=== PATIENT | female | born 1990 | race Caucasian/White ===

== ENCOUNTER 2019-08-05 16:26 | Emergency (ER) | payer OTHER, BC, MEDICAID, SELFPAY ==
[2019-08-05 16:34] VITALS: BP 129/77; PULSE 88; RESP 16; TEMP 36.4; O2SAT 100; BMI 24.2
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
[2019-08-05 18:12] VITALS: BP 118/62; PULSE 72; RESP 16; O2SAT 96
== END 2019-08-05 18:14 | disposition home or self-care (01) ==
PROVIDERS: Emergency Provider Nurse Practitioner Family; Family Provider Family Medicine
DX: Z04.1 Encounter for examination and observation following transport accident (principal); F17.210 Nicotine dependence, cigarettes, uncomplicated; V49.9XXA Car occupant (driver) (passenger) injured in unspecified traffic accident, initial encounter
CPT/HCPCS: 72072; 72100; 73562; 99281; 99282

== ENCOUNTER 2021-10-24 07:25 | Emergency (ER) | payer MEDICAID, SELFPAY ==
[2021-10-24 07:31] VITALS: BP 107/64; PULSE 99; RESP 16; TEMP 37.2; O2SAT 99; BMI 25.8
--- NOTE | 2021-10-24 07:50 | CTR_ITS ---
PROCEDURE INFORMATION: Exam: CT Abdomen And Pelvis With Contrast Exam date and time: 10/24/2021 9:56 AM Age: 31 years old Clinical indication: Abdominal pain. C-sections x 4. Severe lower abdominal pain since yesterday with vomiting this morning. TECHNIQUE: Imaging protocol: Computed tomography of the abdomen and pelvis with contrast. Radiation optimization: All CT scans at this facility use at least one of these dose optimization techniques: automated exposure control; mA and/or kV adjustment per patient size (includes targeted exams where dose is matched to clinical indication); or iterative reconstruction. Contrast material: OMNI 300; Contrast volume: 95 ml; Contrast route: INTRAVENOUS (IV); COMPARISON: [place] [facility] [place] > 14 weeks 12/09/2018 10:17 AM RADIATION DOSE METRICS: Total DLP (mGy-cm): 1144.83 FINDINGS: Lungs: There is subsegmental atelectasis or scarring in the right middle lobe. No pericardial effusion. No hiatal hernia. Liver: The liver is enlarged measuring 21.1 cm. There is mild biliary ductal dilatation in the right hepatic lobe of unknown clinical significance. Gallbladder and bile ducts: The gallbladder is unremarkable. Pancreas: The pancreas is unremarkable. Spleen: The spleen is enlarged measuring 13.2 cm. Adrenal glands: The adrenal glands are unremarkable. Kidneys and ureters: Subcentimeter renal hypodensities are too small to accurately characterize and require no follow-up. Stomach and bowel: The stomach and small bowel are unremarkable. The colon is unremarkable. Appendix: The appendix is not discretely identified. There is a tubular structure in the right adnexa that could reflect hydrosalpinx/pyosalpinx. It is difficult to exclude acute appendicitis. There is free fluid in the right adnexa and pelvis. Some of the fluid is dense suggesting the presence of blood. Intraperitoneal space: No free intraperitoneal air is seen. Arteries: No abdominal aortic aneurysm. Lymph nodes: No retroperitoneal lymphadenopathy. Urinary bladder: The bladder wall is thickened. Correlate with urinalysis to exclude cystitis. Reproductive: The uterus appears retroflexed. Bones/joints: No acute fracture is identified. Soft tissues: No subcutaneous soft tissue swelling is appreciated. CT/CT abdomen pelvis w con* [id number] IMPRESSION: 1. The appendix is not discretely identified. There is a tubular structure in the right adnexa that could reflect hydrosalpinx/pyosalpinx. It is difficult to exclude acute appendicitis. There is free fluid in the right adnexa and pelvis. Some of the fluid is dense suggesting the presence of blood. Consider CT of the abdomen and pelvis with oral contrast with delay to allow oral contrast to reach the right lower quadrant to further assess if clinically warranted. Consider ultrasound to further assess if more clinically concerned for a gynecologic etiology. 2. The bladder wall is thickened. Correlate with urinalysis to exclude cystitis. 3. Hepatosplenomegaly with mild dilatation of the biliary ducts in the right hepatic lobe of unknown clinical significance. Consider nonemergent MR abdomen hepatic protocol with and without contrast to better characterize.
--- NOTE | 2021-10-24 07:51 | W.ED.ABDPA2 ---
Documented by User: [place] Calvin 10/24/21 15:02 HPI - Abdominal Pain General: Chief Complaint: Abdominal Pain Stated Complaint: severe abdominal pain Time Seen by Provider: 10/24/21 07:35 History of Present Illness: Patient complains about abdominal discomfort that began yesterday. She said it was mild and went across the low abdomen become worse during the night to now where she cannot lay on her left side much at all but she says when she lays on her left side hurts more on her right side. Denies any vomiting has been nauseated though. Has had some chills but no fever. No recent illness that she is aware of. No vaginal discharge or history ovarian cyst. Patient has a history of 4 C-sections. Associated Symptoms: Reports nausea; Denies chills, fever(s) and vomiting Review of Systems Const: Denies: fever(s), chills or body aches Eyes: Denies: eye discomfort ENMT: Denies: throat pain Card: Denies: chest pain Resp: Denies: dyspnea GI: Reports: abdominal pain and nausea; Denies: vomiting Skin/Breast: Denies: rash Neuro: Denies: headache(s) Psych: Denies: depression or suicidal ideation PFSH ED PFSH: Social History Smoking and tobacco status: current every day smoker Physical Exam Const: COMMON NORMALS: no acute distress, patient oriented x3 and alert HENMT: COMMON NORMALS: normocephalic and external ears normal HEAD & SCALP: normocephalic EXTERNAL EAR: Yes external ears normal Eye: COMMON NORMALS: EOMs intact bilaterally Neck/C-Spine: COMMON NORMALS: no JVD Resp: COMMON NORMALS: normal respiratory effort and No use of accessory muscles Cardio: COMMON NORMALS: no JVD GI: AUSCULTATION: Yes Hypoactive bowel sounds present PALPATION: Yes Tenderness to palpation present (GI) (Generalized) PERCUSSION: normal to percussion Extremity: COMMON NORMALS: normal to inspection and full ROM Neuro: COMMON NORMALS: patient oriented x3 SENSORIUM/ORIENTATION: Yes alert Psych: COMMON NORMALS: mental status grossly normal Skin: COMMON NORMALS: no rashes or lesions noted GENERAL SKIN EXAM: no rashes or lesions noted Course Vital Signs: Vital signs: Vital Signs Temperature 99.0 F 10/24/21 07:31 Pulse Rate 99 10/24/21 07:31 Respiratory Rate 18 10/24/21 12:52 Blood Pressure 107/64 10/24/21 07:31 Pulse Oximetry 99 10/24/21 07:31 MDM - Abdominal Pain Medical Decision Making Patient presents with abdominal discomfort that started at 2100 last night. Radiology laboratories studies were done CTs with contrast and oral contrast performed and spoke with the V rad radiologist on both of those. Finally recommended ultrasound transvaginal be done and revealed probably hemorrhagic cyst of the ovary. Patient's pain controlled with pain medications.. I spoke with Dr. Montemayor and Dr. Ramirez concerning this patient documented and as states that we will follow-up 0 800 Sunday morning for appointment to control pain with medication. Lab Data : 10/24/21 07:54 10/24/21 07:54 Labs/Radiology: Radiology Impressions Abdomen/Pelvis CT 10/24/21 10:36 IMPRESSION: 1. There is complex fluid in the pelvis. The suspected right adnexal pyosalpinx/hydrosalpinx is not well visualized by noncontrast CT. There is complex fluid in the pelvis. Recommend ultrasound to further assess. 2. The distal appendix is now visualized despite the fact that contrast has not reached the right lower quadrant. The distal appendix is essentially normal in caliber. The proximal and mid appendix is obscured by complex fluid in the pelvis. This is felt unlikely to represent acute appendicitis. 3. Hepatosplenomegaly. Mild biliary ductal dilatation in the right hepatic lobe is not well seen by noncontrast CT. ADDENDUM: 10/24/21 1243 Findings discussed with SHERRI SORENSON at 10/24/2021 12:40 PM CDT. Pelvic/Transvag US 10/24/21 12:41 IMPRESSION: 1. Complex free fluid in the pelvis is only minimal. May be due to ruptured hemorrhagic cyst. 2. Both ovaries contain multiple small peripheral follicles without enlargement. If this patient is having significant pain ovarian torsion should be considered although there are no imaging findings at this time the cystic for torsion. 3. Prominent varicosities in the pelvis. May be related to pelvic venous congestion syndrome. Laboratory Results WBC 11.3 10^3/uL (4.0-10.0) H 10/24/21 07:54 RBC 4.43 10^6/uL (4.1-5.3) 10/24/21 07:54 Hgb 12.8 g/dL (11.5-15.3) 10/24/21 07:54 Hct 39.2 % (37.0-47.0) 10/24/21 07:54 MCV 88.5 fl (81-99) 10/24/21 07:54 MCH 28.9 pg (28.0-34.0) 10/24/21 07:54 MCHC 32.7 g/dL (30.0-36.0) 10/24/21 07:54 RDW 13.4 % (12.1-15.1) 10/24/21 07:54 Plt Count 227 10^3/cmm (130-400) 10/24/21 07:54 MPV 9.8 fL (7.4-10.4) 10/24/21 07:54 Neut % (Auto) 91.3 % 10/24/21 07:54 Lymph % (Auto) 3.8 % 10/24/21 07:54 [place] % (Auto) 4.1 % 10/24/21 07:54 Eos % (Auto) 0.2 % 10/24/21 07:54 Baso % (Auto) 0.3 % 10/24/21 07:54 Neut # (Auto) 10.36 10^3/uL (1.8-7.7) H 10/24/21 07:54 Lymph # (Auto) 0.4 10^3/uL (0.8-4.8) L 10/24/21 07:54 [place] # (Auto) 0.5 10^3/uL (0.2-0.9) 10/24/21 07:54 Eos # (Auto) 0.0 10^3/uL (0.0-0.8) 10/24/21 07:54 Baso # (Auto) 0.0 10^3/uL (0.0-0.1) 10/24/21 07:54 Nucleated RBC % (auto) 0 % 10/24/21 07:54 Nucleated RBCs # 0.0 /100WBC 10/24/21 07:54 Sodium 139 mmol/L (136-145) 10/24/21 07:54 Potassium 3.8 mmol/L (3.5-5.1) 10/24/21 07:54 Chloride 105 mmol/L (98-107) 10/24/21 07:54 Carbon Dioxide 22 mmol/L (22-29) 10/24/21 07:54 Anion Gap 15.8 (5-19) 10/24/21 07:54 BUN 11 mg/dL (6-20) 10/24/21 07:54 Creatinine 0.8 mg/dL (0.5-0.9) 10/24/21 07:54 GFR Calculation 84.2 mL/min (90-130) L 10/24/21 07:54 Glucose 122 mg/dL (65-115) H 10/24/21 07:54 Calculated Osmolality 289 mOsm/kg (285-295) 10/24/21 07:54 Calcium 8.3 mg/dL (8.5-10.5) L 10/24/21 07:54 Total Bilirubin 0.7 mg/dL (0.15-1.2) 10/24/21 07:54 AST 9 U/L (0-32) 10/24/21 07:54 ALT 7 U/L (0-33) 10/24/21 07:54 Alkaline Phosphatase 45 IU/L (35-105) 10/24/21 07:54 Total Protein 6.6 g/dL (6.6-8.7) 10/24/21 07:54 Albumin 4.0 g/dL (3.5-5.2) 10/24/21 07:54 Globulin 2.6 g/dL (1.3-4.6) 10/24/21 07:54 Lipase 19 U/L (13-60) 10/24/21 07:54 HCG, Qual Negative (Negative) 10/24/21 07:54 Urine Color Dark yellow (Yellow) 10/24/21 08:31 Urine Appearance Hazy (CLEAR) A 10/24/21 08:31 Urine pH 5 (5-7) 10/24/21 08:31 Ur Specific [place] 1.025 (1.005-1.030) 10/24/21 08:31 Urine Protein Neg (Negative) 10/24/21 08:31 Urine Glucose (UA) Norm (Normal) 10/24/21 08:31 Urine Ketones Negative (Negative) 10/24/21 08:31 Urine Blood Neg (Negative) 10/24/21 08:31 Urine Nitrate Negative (Negative) 10/24/21 08:31 Urine Bilirubin 1+ (Negative) H 10/24/21 08:31 Urine Urobilinogen 1 mg/dL (Negative) H 10/24/21 08:31 Ur Leukocyte Esterase Negative (Negative) 10/24/21 08:31 Urine RBC 0-4 /hpf (0-2) H 10/24/21 08:31 Urine WBC 0-4 /hpf (0-5) H 10/24/21 08:31 Ur Squamous Epith Cells 0-4 /hpf (0-5) H 10/24/21 08:31 Amorphous Sediment 1+ /hpf 10/24/21 08:31 Urine Bacteria 2+ /hpf (NONE) H 10/24/21 08:31 Discharge Plan Discharge Patient Disposition: Home Clinical Impression: Hemorrhagic cyst of ovary Condition: Stable Prescriptions: New hydrocodone-acetaminophen 5-325 mg tablet 1 tab PO TID PRN (Reason: pain) Qty: 14 0RF cephalexin 500 mg capsule 500 mg PO Q8H 7 Days Qty: 21 0RF No Action multivitamin Tablet 1 tab PO DAILY 0RF Discharge Orders: Discharge ED (Routine); Ordered 10/24/21 Ordered By: Boom Sorenson Referrals: Guy Castillo MD [Primary Care Provider] - Ziggy Mei MD [Staff Physician] - Discharge Diet: Usual diet Discharge Activity: Increase activity as tolerated Patient Instructions: Ruptured Ovarian Cyst (ED) Activity Restrictions/Additional Instructions: Medication as prescribed. Return to the ER for worsening symptoms. You have an appoint with Dr. Ramirez the SAUSAGE INSPECTOR doc at [phone] here at [facility]. Stand Alone Forms: Work/School Release Coding Level of Care Code ED Advanced Practice Psychiatric Nurse for Chg Fwd Exam Comprehensive Documented by User: Hailee Montemayor MD 10/25/21 16:22 HPI - Abdominal Pain General: Chief Complaint: Abdominal Pain Stated Complaint: severe abdominal pain Time Seen by Provider: 10/24/21 07:35 PFSH ED PFSH: Social History Smoking and tobacco status: current every day smoker Course Vital Signs: Vital signs: Vital Signs Temperature 99.0 F 10/24/21 07:31 Pulse Rate 99 10/24/21 07:31 Respiratory Rate 18 10/24/21 12:52 Blood Pressure 107/64 10/24/21 07:31 Pulse Oximetry 99 10/24/21 07:31 MDM - Abdominal Pain Medical Decision Making Patient presents with abdominal discomfort that started at 2100 last night. Radiology laboratories studies were done CTs with contrast and oral contrast performed and spoke with the V rad radiologist on both of those. Finally recommended ultrasound transvaginal be done and revealed probably hemorrhagic cyst of the ovary. Patient's pain controlled with pain medications.. I spoke with Dr. Montemayor and Dr. Ramirez concerning this patient documented and as states that we will follow-up 0 800 Sunday morning for appointment to control pain with medication. Dr. Montemayor - Patient evaluation, diagnosis, and management was performed independently by Boom Sorenson. I did not personally see the patient but staffed the patient with patient's provider. I did review the patient's note today and I believe this note is consistent. Lab Data : 10/24/21 07:54 10/24/21 07:54 Labs/Radiology: Radiology Impressions Abdomen/Pelvis CT 10/24/21 10:36 IMPRESSION: 1. There is complex fluid in the pelvis. The suspected right adnexal pyosalpinx/hydrosalpinx is not well visualized by noncontrast CT. There is complex fluid in the pelvis. Recommend ultrasound to further assess. 2. The distal appendix is now visualized despite the fact that contrast has not reached the right lower quadrant. The distal appendix is essentially normal in caliber. The proximal and mid appendix is obscured by complex fluid in the pelvis. This is felt unlikely to represent acute appendicitis. 3. Hepatosplenomegaly. Mild biliary ductal dilatation in the right hepatic lobe is not well seen by noncontrast CT. ADDENDUM: 10/24/21 1243 Findings discussed with SHERRI SORENSON at 10/24/2021 12:40 PM CDT. Pelvic/Transvag US 10/24/21 12:41
[2021-10-24 08:03] VITALS: RESP 17
[2021-10-24] MEDS: morphine 4 mg/mL SDV 1 mL IVP ×2 (08:03→10:41)
[2021-10-24] MEDS: ondansetron 2 mg/ML SDV 2 mL 4 MG IVP (08:03)
[2021-10-24] MEDS: sodium chloride 0.9% 1,000 ML 999 ML IV (08:03)
[2021-10-24 08:05] LABS: Basophils % 0.3 %; Eosinophils % 0.2 %; Hematocrit 39.2 % (37.0-47.0); Hemoglobin 12.8 g/dL (11.5-15.3); Lymphocytes # 0.4 10^3/uL (0.8-4.8); Lymphocytes % 3.8 %; Mean Corpuscular HGB Conc 32.7 g/dL (30.0-36.0); Mean Corpuscular Hemoglobin 28.9 pg (28.0-34.0); Mean Corpuscular Volume 88.5 fl (81-99); Mean Platelet Volume 9.8 fL (7.4-10.4); Monocytes # 0.5 10^3/uL (0.2-0.9); Monocytes % 4.1 %; Neutrophils # 10.36 10^3/uL (1.8-7.7); Neutrophils % 91.3 %; Nucleated Red Blood Cells % 0 %; Platelet Count 227 10^3/cmm (130-400); Red Blood Count 4.43 10^6/uL (4.1-5.3); Red Cell Distribution Width 13.4 % (12.1-15.1); White Blood Count 11.3 10^3/uL (4.0-10.0)
[2021-10-24 08:29] LABS: Alanine Aminotransferase 7 U/L (0-33); Alkaline Phosphatase 45 IU/L (35-105); Anion Gap 15.8 (5-19); Aspartate Amino Transferase 9 U/L (0-32); Blood Urea Nitrogen 11 mg/dL (6-20); Calcium 8.3 mg/dL (8.5-10.5); Carbon Dioxide 22 mmol/L (22-29); Chloride 105 mmol/L (98-107); Globulin 2.6 g/dL (1.3-4.6); Glomerular Filtration Rate 84.2 mL/min (90-130); Glucose 122 mg/dL (65-115); Lipase 19 U/L (13-60); Osmolality Calculated 289 mOsm/kg (285-295); Potassium 3.8 mmol/L (3.5-5.1); Sodium 139 mmol/L (136-145); Total Bilirubin 0.7 mg/dL (0.15-1.2); Total Protein 6.6 g/dL (6.6-8.7)
[2021-10-24 08:30] LABS: HCG, Serum Qual Negative (Negative)
[2021-10-24 08:47] LABS: Add Urine Microscopic? YES; Bacteria Urine 2+ /hpf; Bilirubin Urine 1+ (Negative); Blood Urine Neg (Negative); Glucose Urine UA Norm (Normal); Ketones Urine Negative (Negative); Leukocyte Esterase Urine Negative (Negative); Nitrate Urine Negative (Negative); Protein Urine Neg (Negative); RBC Urine 0-4 /hpf (0-2); Specific Gravity, Urine 1.025 (1.005-1.030); Squamous Epithelial Cell Urine 0-4 /hpf (0-5); Urine Appearance Hazy (CLEAR); Urine Color Dark Yellow (Yellow); Urobilinogen Urine 1 mg/dL (Negative); WBC Urine 0-4 /hpf (0-5); pH Urine 5 (5-7)
[2021-10-24 08:48] LABS: Add Urine Culture? Yes; Amorphous Sediment Urine 1+ /hpf
[2021-10-24] MEDS: iohexol 300 mg/mL 100 mL Btl IV (10:03)
--- NOTE | 2021-10-24 10:36 | CTR_ITS ---
PROCEDURE INFORMATION: Exam: CT Abdomen And Pelvis Without Contrast Exam date and time: 10/24/2021 12:26 PM Age: 31 years old Clinical indication: Lower abdominal pain. 4 prior C-sections. Reimage fluid/swelling in the right lower quadrant. Okay so completely unhelpful TECHNIQUE: Imaging protocol: Computed tomography of the abdomen and pelvis without contrast. Radiation optimization: All CT scans at this facility use at least one of these dose optimization techniques: automated exposure control; mA and/or kV adjustment per patient size (includes targeted exams where dose is matched to clinical indication); or iterative reconstruction. Other contrast: Oral, omni 300, 25; COMPARISON: CT abdomen pelvis w con* [id number] 10/24/2021 9:56 AM RADIATION DOSE METRICS: Total DLP (mGy-cm): 1399.56 FINDINGS: Liver: The liver is enlarged measuring 21.2 cm. Mild biliary ductal dilatation in the right hepatic lobe is not well seen by noncontrast CT. Gallbladder and bile ducts: The gallbladder is unremarkable. Pancreas: The pancreas is unremarkable. Spleen: The spleen is enlarged measuring 13.3 cm. Adrenal glands: The adrenal glands are unremarkable. Kidneys and ureters: The kidneys are unremarkable. Stomach and bowel: The stomach and small bowel are unremarkable. The colon is unremarkable. Appendix: The distal appendix is now visualized despite the fact that contrast has not reached the right lower quadrant. The distal appendix is essentially normal in caliber. The proximal and mid appendix is obscured by complex fluid in the pelvis. Intraperitoneal space: No free intraperitoneal air is seen. Arteries: No abdominal aortic aneurysm. Lymph nodes: No retroperitoneal lymphadenopathy. Urinary bladder: No mass is identified. Reproductive: There is complex fluid in the pelvis. The suspected right adnexal pyosalpinx/hydrosalpinx is not well visualized by noncontrast CT. Recommend ultrasound to further assess. Bones/joints: No acute fracture is seen. Soft tissues: Tiny fat containing umbilical hernia. Minimal scarring in the right middle lobe. Tiny pulmonary nodule in the right lower lobe measuring 3.6 mm. The patient does not meet age criteria for pulmonary nodule follow-up by Fleischner society criteria. No pericardial effusion. No hiatal hernia. CT/CT abdomen pelvis wo con [id number] IMPRESSION: 1. There is complex fluid in the pelvis. The suspected right adnexal pyosalpinx/hydrosalpinx is not well visualized by noncontrast CT. There is complex fluid in the pelvis. Recommend ultrasound to further assess. 2. The distal appendix is now visualized despite the fact that contrast has not reached the right lower quadrant. The distal appendix is essentially normal in caliber. The proximal and mid appendix is obscured by complex fluid in the pelvis. This is felt unlikely to represent acute appendicitis. 3. Hepatosplenomegaly. Mild biliary ductal dilatation in the right hepatic lobe is not well seen by noncontrast CT.
[2021-10-24 10:41] VITALS: RESP 18
--- NOTE | 2021-10-24 12:41 | US_ITS ---
WS: [id number] TRANSABDOMINAL PELVIC AND TRANSVAGINAL PELVIC ULTRASOUND HISTORY: fluid in pelvis, radiologist requested COMPARISON: None available. Uterus: 7.3 cm x 4.8 cm x 4.0 cm. Normal size retroverted uterus. No mass identified. There is a smal l amount of complex free fluid in the pelvis near the fundus of the uterus and towards the cul-de-sac . Endometrium: 0.9 cm. Trilaminar appearance due to proliferative phase. Right ovary: 2.7 cm x 2.3 cm x 1.8 cm. Although the ovaries not enlarged there are multiple small fol licles within the ovary. Slightly higher resistance waveform than expected. Left ovary: 2.8 cm x 1.6 cm x 2.5 cm. Small peripheral follicles. Normal vascularity. Mildly complex free fluid in the pelvis. Numerous bilateral varicoceles. US/US pelvic with transvaginal IMPRESSION: 1. Complex free fluid in the pelvis is only minimal. May be due to ruptured he morrhagic cyst. 2. Both ovaries contain multiple small peripheral follicles without enlargemen t. If this patient is having significant pain ovarian torsion should be conside red although there are no imaging findings at this time the cystic for torsion. 3. Prominent varicosities in the pelvis. May be related to pelvic venous conge stion syndrome.
[2021-10-24 12:52] VITALS: RESP 18
[2021-10-24] MEDS: HYDROmorphone 1 mg/mL INJ 1 mL IVP (12:52)
--- NOTE | 2021-10-25 11:38 | DCPLANNER ---
Addendum entered by Marilin Ray 11/01/21 22:12: Patient had a follow up appointment scheduled for 10.26.21 with [facility] - patient did attend appointment. Original Note: manager civil had message to schedule a follow up appointment for patient with [facility]. manager civil sent patients information to the front office staff at [facility]. According to the order from the physician, patient has an appointment scheduled for Wednesday, November 03, [address] at 8:[address] Ramirez.
[2021-10-26 15:00] LABS: Basophils % 0.6 %; Eosinophils # 0.2 10^3/uL (0.0-0.8); Eosinophils % 3.9 %; Hematocrit 35.9 % (37.0-47.0); Hemoglobin 11.5 g/dL (11.5-15.3); Lymphocytes # 0.9 10^3/uL (0.8-4.8); Lymphocytes % 15.8 %; Mean Corpuscular Hemoglobin 28.7 pg (28.0-34.0); Mean Corpuscular Volume 89.5 fl (81-99); Mean Platelet Volume 9.4 fL (7.4-10.4); Monocytes # 0.4 10^3/uL (0.2-0.9); Monocytes % 7.6 %; Neutrophils # 3.86 10^3/uL (1.8-7.7); Neutrophils % 71.7 %; Nucleated Red Blood Cells % 0 %; Platelet Count 207 10^3/cmm (130-400); Red Blood Count 4.01 10^6/uL (4.1-5.3); Red Cell Distribution Width 12.8 % (12.1-15.1); White Blood Count 5.4 10^3/uL (4.0-10.0)
== END 2021-10-24 15:27 | disposition home or self-care (01) ==
PROVIDERS: Obstetrics & Gynecology; Emergency Provider Nurse Practitioner Family; PCP Family Medicine
DX: N83.209 Unspecified ovarian cyst, unspecified side (principal); F17.200 Nicotine dependence, unspecified, uncomplicated
CPT/HCPCS: 74176; 74177; 76830; 76856; 80053; 81001; 83690; 84703; 85025; 87086; 96361; 96374; 96375; 96376; 99284; J1170; J2270; J2405; J7030; Q9967

== ENCOUNTER 2021-10-26 08:41 | Observation (INO) | payer MEDICAID, SELFPAY ==
[2021-10-26] MEDS: ketorolac 30 mg/mL INJ IVP ×2 (17:28→23:00)
[2021-10-26] MEDS: dextrose 5%-lactated ringers 1,000 ML 125 ML IV (17:28)
[2021-10-26] MEDS: docusate sodium 100 mg Capsule PO (17:29)
--- NOTE | 2021-10-26 17:30 | PM.HP ---
Providers/Chief Complaint Admitting Physician: Sonya Ramirez MD Primary Care Provider: Guy Castillo MD History of Present Illness Details: Ms. Cat is a 31 year old new patient with LMP of 10/10/2021. Presents to clinic for ER follow up for ruptured cyst. She denies any vaginal bleeding. She denies any abnormal discharge. She reports a lot of cramping and pain in her lower abdomen.?? Review of Systems General: Reports: 10 or more systems reviewed and unremarkable except in HPI and below Medications/Allergies Home Medications Medication Instructions Recorded Confirmed Last Taken Type cephalexin 500 mg capsule 500 mg PO Q8H 7 Days #21 cap 10/24/21 10/26/21 Unknown Rx hydrocodone 5 mg-acetaminophen 325 1 tab PO TID PRN #14 tab 10/24/21 10/26/21 Unknown Rx mg tablet multivitamin 1 tab PO DAILY 10/24/21 10/26/21 10/23/21 History Allergies Allergy/AdvReac Type Severity Reaction Status Date / Time adhesive Allergy ALGY-Rash Verified 10/26/21 07:50 PFSH Acute PFSH: Medical History (Updated 10/26/21 @ 17:20 by Sonya Ramirez MD) No pertinent past medical history neghx: dm, htn, thyroid, dvt/pe PCP: Dr. Castillo Surgical History (Updated 10/26/21 @ 17:20 by Sonya Ramirez MD) History of delivery x4 Family History (Updated 10/26/21 @ 07:54 by Elizabeth Hetser LPN) Mother Diabetes Family/Other Diabetes maternal and paternal aunts and uncles Breast cancer maternal and paternal aunt Cancer maternal uncle--thyroid cancer Grandfather Hypertension maternal Father Hypertension Denies family history of Heart disease Hyperlipidemia Bleeding disorder Thyroid disease Stroke Social History Smoking and tobacco status: current every day smoker Female Reproductive History: Date of last menstrual period: 10/10/21 Physical Exam Narrative: The patient presents for ER follow-up for ruptured ovarian cyst.? She reports that the pain started as a dull pain on Sunday.? It progressed until it became a constant pulling pain.? She went to the ER for the pain.? She had an abdominal and pelvic CT scan and pelvic ultrasound.? There was questionable dilated fallopian tube, which didn't seem to correlate with the ultrasound.? She was given IV pain medication in the ER and oral narcotics to go home.? She reports that the pain medication only works for a short time and then the pain returns.? Movement makes the pain much worse.? Breathing even hurts.? Stillness helps.? She has not eaten in several days due to the pain.? She initially had nausea and vomiting.? She denies that now. Exam performed in office. Please see exam there. A&P Assessment and plan (1) Acute pelvic pain: Status: Acute Plan 1) Acute pelvic pain: ?Assessment & Plan: The patient has rebound tenderness Likely diagnosis is PID given the possible hydro/pyosalpinx on CT scan and physical exam with CMT Admission for IV antibiotics. pain control with IV and oral pain medication. regular diet close monitoring for worsening status Attestations Medical Necessity Statement*: The patient will need at least 48 hours of IV antibiotics. I have discussed how long to expect to be in the hospital and she agrees with plan. Coding Level of Care Code Acute Manager [employer] for [facility] Diagnoses Acute pelvic pain R10.2
[2021-10-26] MEDS: doxycycline 100 MG in sodium chloride 0.9% (plus) 100 ML IV (19:06)
[2021-10-26 19:29] VITALS: RESP 17
[2021-10-26] MEDS: oxyCODONE-APAP 5-325 mg Tablet PO (19:29)
[2021-10-26 20:10] VITALS: BP 110/70; PULSE 68; RESP 18; TEMP 36.7; O2SAT 98
[2021-10-27] VITALS (7 sets, daily range): BP systolic 100–141; BP diastolic 60–92; PULSE 49–65; RESP 12–19; TEMP 36.3–37.1; O2SAT 98–100
[2021-10-27] MEDS: dextrose 5%-lactated ringers 1,000 ML 125 ML IV ×3 (01:55→16:47)
[2021-10-27] MEDS: oxyCODONE-APAP 5-325 mg Tablet PO (03:33)
[2021-10-27] MEDS: doxycycline 100 MG in sodium chloride 0.9% (plus) 100 ML IV ×2 (05:21→16:47)
[2021-10-27] MEDS: ketorolac 30 mg/mL INJ IVP ×2 (05:22→11:08)
--- NOTE | 2021-10-27 06:42 | PC.NURSE ---
Patient reported to this rn at this time that pain medication made her feel a little nauseous with last dose. Patient offered prn medication for nausea but declined and asked for saltine crackers and a lemon [place] soda.
[2021-10-27] MEDS: docusate sodium 100 mg Capsule PO ×2 (07:55→16:49)
[2021-10-27] MEDS: ondansetron 2 mg/ML SDV 2 mL 4 MG IVP (09:19)
--- NOTE | 2021-10-27 09:21 | P.PN_ITS ---
Subjective Subjective: The patient is improving today. She is finally able to eat. She is still requiring pain medication. Vitals/I&O/Wt Last Vital Signs Temp 98.5 F 10/28/21 08:00 Pulse 59 L 10/28/21 08:00 Resp 17 10/28/21 08:00 BP 121/83 10/28/21 08:00 Pulse Ox 98 10/28/21 08:00 10/27/21 10/28/21 10/28/21 22:59 06:59 14:59 Intake Total 1700 / 2930 1397.917 / 4327.917 981.25 / 981.25 Balance 1700 / 2930 1397.917 / 4327.917 981.25 / 981.25 Weight last 48 hrs Weight 171 lb 11.2 oz Weight 162 lb 6.4 oz Physical Exam Const: COMMON NORMALS: no acute distress, average body habitus, patient oriented x3, no limitations, alert and well nourished GENERAL APPEARANCE: cooperative, comfortable, well kempt and well developed ORIENTATION/CONSCIOUSNESS: Yes awake, Yes oriented to person, Yes oriented to place and Yes oriented to time Resp: COMMON NORMALS: normal respiratory effort EFFORT & INSPECTION: Yes able to speak in complete sentences GI: COMMON NORMALS: Soft to palpation PALPATION: Yes Soft to palpation, No Rebound tenderness present and Yes Other GI palpation findings present (beverage distiller, but rebound tenderness now absent) Neuro: COMMON NORMALS: patient oriented x3 SENSORIUM/ORIENTATION: Yes alert, Yes oriented to person, Yes oriented to place and Yes oriented to time Psych: APPEARANCE: Yes well kempt A&P Assessment and plan (1) PID (acute pelvic inflammatory disease): continue iv antibiotics continue pain management likely home tomorrow Status: Acute Attestations Medical Necessity Statement*: The patient has been admitted for PID. This usually requires 48 hours of IV antibiotics. She will likely go home tomorrow Coding Level of Care Code Acute Blood Bank Manager for [facility] Diagnoses PID (acute pelvic inflammatory disease) N73.0
--- NOTE | 2021-10-27 10:25 | PC.CHAP ---
Pastoral Care Encounter/Spiritual Assessment Type of Contact [] Declined patient service coordinator visit [] Patient/Family/Request visit [] Outpatient visit [] Follow-up visit [] Physician referral [] Code/Alert [x] Routine visit [] Staff referral [] Actively dying [] Patient sleeping [] Family support [] [] Out of room [] Palliative care [] [x] Receiving care in room [] Pre-surgical visit [] Trauma [] Long length of stay [] ICU visit [] Other: Relational/Emotional Strength [x] Patient feels connected with others/family/visitors/staff [] Distress [] Loneliness/isolation [] Abandonment Spirituality of Patient [x] Person of Naomi [] Attends Oriental Orthodox of their Naomi [x] Believes in Prayer [] Reads Bible or Protestant materials [] There are Spiritual issues to be addressed Plastics Worker Interventions [x] Prayer [x] Active listening [x] Non-anxious presence [x] Spiritual/emotional support [] Crisis/trauma care [x] Spiritual counseling [] Bereavement support [] Provided bereavement packet [] Provided Bible/devotional materials [] Provided toy/stuffed animal, coloring book to patient or family member [] Provided Communion [] Anointing/[place] [] Salvation [x] Completed spiritual assessment [] Other: Impact on Illness or Injury [] Angry [] Fearful [] Anxious [] Often cries [] Exhaustion [] Unable to work [] Unable to attend church [] Unable to walk/stand [] Unable to read [] Unable to drive [] Unable to eat/drink [] Unable to sleep [] Unable to be with family [] Patient intubated [] Other: Summary had tests some negative results has a good attitude feels better and going home Time spent with patient 10 mins
[2021-10-27] MEDS: ibuprofen 800 mg tablet PO ×2 (11:08→16:49)
[2021-10-28] VITALS: BP 102/63; PULSE 62; RESP 17; TEMP 36.7; O2SAT 97
[2021-10-28] MEDS: dextrose 5%-lactated ringers 1,000 ML 125 ML IV ×2 (00:22→08:13)
[2021-10-28] MEDS: ibuprofen 800 mg tablet PO (03:28)
[2021-10-28 04:00] VITALS: BP 107/71; PULSE 56; RESP 17; TEMP 36.5; O2SAT 93
[2021-10-28] MEDS: doxycycline 100 MG in sodium chloride 0.9% (plus) 100 ML IV (04:53)
[2021-10-28 08:00] VITALS: BP 121/83; PULSE 59; RESP 17; TEMP 36.9; O2SAT 98
[2021-10-28] MEDS: docusate sodium 100 mg Capsule PO (08:15)
--- NOTE | 2021-10-28 09:32 | PM.DCS ---
Discharge Providers Date of Admission: 10/26/21 08:41 Date of Discharge: October 28, 2021 Attending Provider at Admission: Sonya Ramirez MD Attending Provider at Discharge: Sonya Ramirez MD Primary Care Provider: Guy Castillo MD Diagnoses at Discharge Discharge Diagnosis (1) PID (acute pelvic inflammatory disease): Status: Acute Hospital Course Hospital Course The patient was admitted for acute PID. She received 48 hours of IV antibiotics and on day #2, she was feeling much better. She was ready for discharge and not requiring any pain management. Physical Exam Narrative: The patient denies any concerns today Const: COMMON NORMALS: no acute distress, average body habitus, patient oriented x3, no limitations, healthy appearing, alert and well nourished GENERAL APPEARANCE: cooperative, comfortable, well kempt and well developed ORIENTATION/CONSCIOUSNESS: Yes awake, Yes oriented to person, Yes oriented to place and Yes oriented to time Resp: COMMON NORMALS: normal respiratory effort EFFORT & INSPECTION: Yes able to speak in complete sentences GI: COMMON NORMALS: Soft to palpation and non-tender PALPATION: Yes Soft to palpation Extremity: COMMON NORMALS: no calf tenderness Neuro: COMMON NORMALS: patient oriented x3 SENSORIUM/ORIENTATION: Yes alert, Yes oriented to person, Yes oriented to place and Yes oriented to time Psych: APPEARANCE: Yes well kempt Discharge Data Vitals Last Vital Signs Temp 98.5 F 10/28/21 08:00 Pulse 59 L 10/28/21 08:00 Resp 17 10/28/21 08:00 BP 121/83 10/28/21 08:00 Pulse Ox 98 10/28/21 08:00 Discharge Plan Discharge Patient Disposition: Home Condition: Stable Prescriptions: New doxycycline hyclate 100 mg capsule 100 mg PO BID 14 Days Qty: 28 0RF Continued multivitamin Tablet 1 tab PO DAILY 0RF cephalexin 500 mg capsule 500 mg PO Q8H 7 Days Qty: 21 0RF Discontinued hydrocodone-acetaminophen 5-325 mg tablet 1 tab PO TID PRN (Reason: pain) Qty: 14 0RF Discharge Orders: Discharge Order (Routine); Ordered 10/28/21 Ordered By: Sonya Ramirez Patient Instructions: Opioid Safety Discharge Attestations Time Spent in Discharge Care*: less than 30 min Quality Metrics Clinical Quality Measures [ No reported AMI, CVA or VTE this stay] Coding Level of Care Code Acute Chg FW DC note Diagnoses PID (acute pelvic inflammatory disease) N73.0
[2021-10-28 12:35] VITALS: BP 121/83; PULSE 59; RESP 17; TEMP 36.9; O2SAT 98
== END 2021-10-28 12:38 | disposition home or self-care (01) ==
PROVIDERS: Admitting Provider Obstetrics & Gynecology; PCP Family Medicine; Visit Provider Obstetrics & Gynecology
DX: N73.0 Acute parametritis and pelvic cellulitis (principal); Z82.49 Family history of ischemic heart disease and other diseases of the circulatory system; Z83.3 Family history of diabetes mellitus; Z80.3 Family history of malignant neoplasm of breast; F17.210 Nicotine dependence, cigarettes, uncomplicated
CPT/HCPCS: 85025; G0378; G0379; J0694; J1885; J2405; J3490

== ENCOUNTER → 2024-10-20 10:11 | Outpatient (BNVA) | payer MEDICAID, SELFPAY | PROVIDERS: PCP Family Medicine; Visit Provider Nurse Practitioner Family | DX: J02.9 Acute pharyngitis, unspecified (principal) | CPT/HCPCS: 87400; 87426; 87880 ==